=== PATIENT | male | born 1990 | race Caucasian/White ===

== ENCOUNTER → 2016-09-22 | Outpatient (CLI) | payer BC ==
--- NOTE | 2016-09-22 18:34 | US ---
EXAMINATION TYPE: US extremity nonvasc mass RT DATE OF EXAM: 09/22/2016 6:02 PM COMPARISON: NONE CLINICAL HISTORY: R22.31 Lumps Localized Swelling Mass. Palpable lumps felt near medial antecubital f ricky for years and are painful now TECHNOLOGIST IMPRESSION: 2 hyperechoic lesion seen at palpable areas that measure 0.8cm, non vascula r, probable lipomas IMPRESSION: Subcutaneous hyperechoic nodules that measure 9 x 4 mm have features of ordinary lipomas .
== END | disposition home or self-care (01) ==
LOC: RADUSMAIN 17:47
PROVIDERS: ATTEND Family Medicine
DX: R22.31 Localized swelling, mass and lump, right upper limb (principal)

== ENCOUNTER 2021-07-19 12:56 | Emergency (ER) | payer BC ==
[2021-07-19] MEDS ORDERED: ACETAMINOPHEN TAB 325 MG TAB PO STA (15:57)
[2021-07-19] MEDS ORDERED: SODIUM CHLORIDE 0.9% 1,000 ML IV ONE (15:59)
--- NOTE | 2021-07-19 16:05 | ED ---
General Adult HPI - General Chief complaint: Fever Stated complaint: Fever; congestion; chills Time Seen by Provider: 07/19/21 15:50 Source: patient, family, RN notes reviewed Mode of arrival: ambulatory Limitations: no limitations - History of Present Illness Initial comments: Well-appearing well-nourished 31-year-old male with no medical history presents to emergency room with fever, body aches, decreased appetite for 5 days. He denies any difficulty breathing or chest pain. He has been vaccinated against coronavirus in November of this year he has not received a booster. He is a nonsmoker -: days(s) (5) Radiation: non-radiation Severity scale (1-10): 6 Quality: aching (body aches) Consistency: constant Improves with: none Worsens with: none Associated Symptoms: fever/chills, loss of appetite, other (diarrhea) - Related Data Home Medications Medication Instructions Recorded Confirmed No Known Home Medications 07/19/21 07/19/21 Allergies Allergy/AdvReac Type Severity Reaction Status Date / Time No Known Allergies Allergy Verified 07/19/21 17:25 Review of Systems ROS Statement: Those systems with pertinent positive or pertinent negative responses have been documented in the HPI. ROS Other: All systems not noted in ROS Statement are negative. Past Medical History Past Medical History: No Reported History History of Any Multi-Drug Resistant Organisms: None Reported Past Surgical History: Orthopedic Surgery Past Psychological History: No Psychological Hx Reported Smoking Status: Former smoker Past Alcohol Use History: None Reported Past Drug Use History: None Reported General Exam Limitations: no limitations General appearance: alert, in no apparent distress Head exam: Present: atraumatic, normocephalic, normal inspection Eye exam: Present: normal appearance, EOMI. Absent: scleral icterus, conjunctival injection, periorbital swelling ENT exam: Present: normal exam, normal oropharynx, mucous membranes moist Neck exam: Present: normal inspection, full ROM. Absent: tenderness, meningismus, lymphadenopathy Respiratory exam: Present: normal lung sounds bilaterally. Absent: respiratory distress, wheezes, rales, rhonchi, stridor, chest wall tenderness, accessory muscle use, decreased breath sounds Cardiovascular Exam: Present: tachycardia, normal heart sounds. Absent: JVD GI/Abdominal exam: Present: soft, normal bowel sounds. Absent: distended, te nderness, guarding, rebound, rigid Extremities exam: Present: normal inspection, full ROM, normal capillary refill. Absent: tenderness, pedal edema, joint swelling, calf tenderness Back exam: Present: normal inspection, full ROM. Absent: tenderness, CVA tenderness (R), CVA tenderness (L), rash noted Neurological exam: Present: alert, oriented X3 Psychiatric exam: Present: normal affect, normal mood Skin exam: Present: warm, dry, intact, normal color. Absent: rash, cyanosis, diaphoretic, petechiae, pallor Course Vital Signs 07/19/21 07/19/21 14:26 18:49 Temperature 101.7 F H 99.9 F H Pulse Rate 109 H 101 H Respiratory 20 17 Rate Blood Pressure 132/84 128/78 O2 Sat by Pulse 100 100 Oximetry - Reevaluation(s) Reevaluation #1: 07/19/21 18:44 Patient tolerated the monoclonal antibodies infusion without any difficulty. He is feeling better after the IV fluids. Time: 18:15 Medical Decision Making - Medical Decision Making Well-appearing 31-year-old male presents to emergency room with fever, body aches, decreased appetite for 5 days. He denies any difficulty breathing or c hest pain. He was vaccinated against coronavirus in November of this year. Patient was Covid positive and was given monoclonal antibodies. He tolerated the infusion without any difficulties. He was discharged home to follow up with his primary care doctor, self quarantine for 10 days for symptom onset in 24 hours without fever. Return to emergency room if any new or worsening symptoms. Case discussed with Dr Mendez. - Lab Data Lab Results 07/19/21 Range/Units 14:32 Coronavirus (PCR) Detected A (Not Detectd) Disposition Clinical Impression: COVID-19 Disposition: HOME SELF-CARE Condition: Good Instructions (If sedation given, give patient instructions): Coronavirus Disease 2019 (COVID-19) Additional Instructions: Self quarantine for 10 days from symptom onset and 24 hours without a fever. Tylenol and/or Motrin as needed for fevers, body aches or pains. You can take vitamin C, vitamin D and zinc to improve immune health. Increase your fluid intake. Is patient prescribed a controlled substance at d/c from ED?: No Referrals: Kevin Hendrix III, MD [Primary Care Provider] - 1-2 days Time of Disposition: 22:07
[2021-07-19] MEDS ORDERED: SODIUM CHLORIDE 0.9% 50 ML IVPB ONE (16:30)
[2021-07-19] MEDS ORDERED: BAMLANIVIMAB (EUA) 700 MG, ETESEVIMAB (EUA) 1,400 MG in SODIUM CHLORIDE 0.9% 100 ML IVPB ONE (17:00)
[2021-07-19 18:50] VITALS: BP 128/78; PULSE 101; RESP 17; TEMP 99.9
== END 2021-07-19 18:45 | disposition home or self-care (01) ==
LOC: EC 12:56
DX: U07.1 COVID-19 (principal); Z87.891 Personal history of nicotine dependence
CPT/HCPCS: 87635; 99283; 96360; J3490

== ENCOUNTER 2022-04-18 13:00 | Emergency (ER) | payer BC ==
[2022-04-18] MEDS ORDERED: dexAMETHasone 2 MG TAB PO STA (13:24)
[2022-04-18] MEDS ORDERED: BENZONATATE 100 MG CAP PO STA (13:24)
--- NOTE | 2022-04-18 13:43 | ED ---
URI HPI - General Chief Complaint: Upper Respiratory Infection Stated Complaint: URI Time Seen by Provider: 04/18/22 13:01 Source: patient, RN notes reviewed Mode of arrival: ambulatory Limitations: no limitations - History of Present Illness Initial Comments: This is a 31-year-old male who presents to the emergency department for a cough. States that this been present for 2 days. He is coughing up a significant amount of phlegm and has an associated sore throat. Denies any fevers, chills, or other upper respiratory symptoms. Patient has had no sick contacts. Denies any difficulty swallowing. Denies any fevers, chills, dyspnea, chest pain, palpitations, abdominal pain, nausea, vomiting, diarrhea, back pain, or headaches. MD Complaint: cough Onset/Timin -: days(s) Associated Symptoms: sore throat - Related Data Previous Rx's Medication Instructions Recorded Benzonatate [Tessalon Perles] 100 mg PO TID PRN #20 capsule 04/18/22 Doxycycline [Vibramycin] 100 mg PO BID 5 Days #10 capsule 04/18/22 predniSONE 50 mg PO QAM 5 Days #5 tablet 04/18/22 Allergies Allergy/AdvReac Type Severity Reaction Status Date / Time No Known Allergies Allergy Verified 04/18/22 13:05 Review of Systems ROS Statement: Those systems with pertinent positive or pertinent negative responses have been documented in the HPI. ROS Other: All systems not noted in ROS Statement are negative. Past Medical History Past Medical History: No Reported History History of Any Multi-Drug Resistant Organisms: None Reported Past Surgical History: Orthopedic Surgery Past Psychological History: No Psychological Hx Reported Smoking Status: Former smoker Past Alcohol Use History: None Reported Past Drug Use History: None Reported General Exam Limitations: no limitations General appearance: alert, in no apparent distress Head exam: Present: atraumatic, normocephalic, normal inspection Respiratory exam: Present: normal lung sounds bilaterally. Absent: respiratory distress, wheezes, rales, rhonchi, stridor Cardiovascular Exam: Present: regular rate, normal rhythm, normal heart sounds. Absent: systolic murmur, diastolic murmur, rubs, gallop, clicks Neurological exam: Present: alert, oriented X3, CN II-XII intact Psychiatric exam: Present: normal affect, normal mood Skin exam: Present: warm, dry, intact, normal color. Absent: rash Course Vital Signs 04/18/22 04/18/22 13:02 15:44 Temperature 98.3 F 98.4 F Pulse Rate 94 88 Respiratory 20 18 Rate Blood Pressure 159/90 148/87 O2 Sat by Pulse 98 98 Oximetry Medical Decision Making - Medical Decision Making This is a 31-year-old male who presents to the emergency department for a cough. COVID is negative. X-ray reveals an increasing density to the right perihilar region suggestive of a developing pneumonia. Patient was given Decadron and Tessalon Perles in the emergency department. Prescription for 5 day course of doxycycline and prednisone were provided along with Tessalon Perles for the cough. Discussed with the patient the need to follow up with his primary care provider next week for reevaluation of symptoms and possible repeat chest x-ray. Return precautions reviewed in depth, the patient is instructed to return to the emergency department with any new, worsening, or concerning symptoms. Patient verbalized understanding. This case was discussed in detail with the attending ED physician. Presentation, findings, and treatment plan discussed in detail as well. - Lab Data Lab Results 04/18/22 Range/Units 13:45 Coronavirus (PCR) Not Detected (Not Detectd) - Radiology Data Radiology results: report reviewed, image reviewed Disposition Clinical Impression: Pneumonia Disposition: HOME SELF-CARE Instructions (If sedation given, give patient instructions): Pneumonia (ED) Additional Instructions: Return to the emergency department with any new, worsening, or concerning symptoms. Take the antibiotic as prescribed for 5 days. Take the prednisone for 5 days as well. The cough medication can be used as needed. Follow up with your primary care provider next week to reevaluate symptoms. Prescriptions: predniSONE 50 mg PO QAM 5 Days #5 tablet Benzonatate [Tessalon Perles] 100 mg PO TID PRN #20 capsule PRN Reason: Cough Doxycycline [Vibramycin] 100 mg PO BID 5 Days #10 capsule Is patient prescribed a controlled substance at d/c from ED?: No Referrals: Kevin Hendrix III, MD [Primary Care Provider] - 1-2 days
--- NOTE | 2022-04-18 13:48 | XR ---
EXAMINATION TYPE: XR chest 2V DATE OF EXAM: 04/18/2022 COMPARISON: NONE HISTORY: Cough TECHNIQUE: Frontal and lateral views of the chest are obtained. FINDINGS: Increased density right perihilar region may reflect developing infiltrate. Correlate clinically. No evidence for pneumothorax. No pleural effusion. The cardiac silhouette size is within normal limits. The osseous structures are grossly intact. IMPRESSION: 1. Increased density right perihilar region may reflect developing infiltrate. Correlate clinically.
[2022-04-18 15:47] VITALS: BP 148/87; PULSE 88; RESP 18; TEMP 98.4
== END 2022-04-18 15:44 | disposition home or self-care (01) ==
LOC: EC 13:00
DX: J18.9 Pneumonia, unspecified organism (principal); Z87.891 Personal history of nicotine dependence; Z79.899 Other long term (current) drug therapy; Z20.822 Contact with and (suspected) exposure to COVID-19
CPT/HCPCS: 87635; 71046; 99283; J8540